=== PATIENT | male | born 1970 | race Caucasian/White ===

== ENCOUNTER 2020-01-31 00:18 | Outpatient (CLI) | payer OTHER, SELFPAY ==
[2020-01-31 17:43] LABS: SARS-CoV-2 RNA PCR Negative
== END 2020-01-31 00:19 | disposition home or self-care (01) ==
LOC: ANHCOVIDDT 00:19
PROVIDERS: PCP Family Medicine; Visit Provider Internal Medicine Gastroenterology
DX: Z01.818 Encounter for other preprocedural examination (principal); Z11.59 Encounter for screening for other viral diseases
CPT/HCPCS: 87635; C9803; U0003

== ENCOUNTER 2020-02-02 00:51 | Day surgery (SDC) | payer OTHER, SELFPAY ==
[2019-11-16 14:52] VITALS: BMI 28.3
[2020-01-26 12:36] VITALS: BMI 27.7
--- NOTE | 2020-02-02 07:45 | P.PNAN_ITS ---
Anes - Initial Pre Proc Eval Procedure: Operation Date: 02/02/20 09:30 Proposed Procedures p Colonoscopy - Migel Matos MD Date/Time: 02/02/20 07:45 Surgeon: Migel Matos MD Pre Op Diagnosis: abn CT scan Patient Data Age: 49 Gender: M Height: 1.88 m Weight: 98 kg Allergies Allergy/AdvReac Type Severity Reaction Status Date / Time No Known Allergies Allergy Verified 02/02/20 09:13 Home Medications Medication Instructions Recorded Confirmed Type aspirin [Aspir-81] 81 mg PO DAILY 07/10/19 11/16/19 History atorvastatin 10 mg PO DAILY 07/10/19 11/16/19 History budesonide-formoterol [Symbicort] 2 puff INHALATION HS 07/10/19 11/16/19 History lisinopril 5 mg PO QAM 07/10/19 11/16/19 History potassium bicarb-citric acid 99 mg PO DAILY 07/10/19 11/16/19 History vitamin B complex [B 1 tablet PO DAILY 07/10/19 11/16/19 History Complex-Vitamin B12] Patient hx anesthesia problems: none Family hx anesthesia problems: none [facility] Past Medical History Medical History (Updated 02/02/20 @ 09:12 by Ty Alvarez MD) Arthritis Asthma Bronchitis CAD (coronary artery disease) Closed left ankle fracture COPD (chronic obstructive pulmonary disease) Hyperlipidemia Hypertension Myocardial infarction 03/2018 Tobacco abuse Urinary tract infection Surgical History Surgical History Hx of tonsillectomy Social History Social History Smoking packs per day: 0.75 Smoking cigarettes per day: 15.0 Years smoked: 33 Smoking pack-years: 24.75 Smoking status: Current every day smoker Tobacco type: cigarettes Gender identity (if verbalized by the patient): Male Anes - Eval Final PreProcedure Day of Procedure 02/02/20 07:45 Patient weight: overweight Heart: regular rate and rhythm Lungs: clear to auscultation and normal air movement Airway: Mallampati scale class II Neurological: alert and oriented Last oral intake: >/= 8 hours ASA classification: III Emergent: no Anesthetic plan: proceed Anesthesia type and monitoring: general GIVS Informed Consent: The patient's anesthetic plan and its attendant risks and benefits were discussed with the patient/family/POA. Questions were solicited and answers provided to the satisfaction of the patient/family/POA.
[2020-02-02 09:15] VITALS: BP 133/56; PULSE 64; RESP 18; TEMP 37.1; O2SAT 99
[2020-02-02 09:16] VITALS: BMI 26.1
[2020-02-02] MEDS: LACTATED RINGERS 1,000 ML 150 ML IV CONT (09:30)
[2020-02-02 10:49] VITALS: BP 122/65; PULSE 62; RESP 22; O2SAT 96
--- NOTE | 2020-02-02 10:49 | WPDGICN ---
Assessment and Plan Assessment and plan (1) Special screening for malignant neoplasm of intestine: Code(s): Z12.10 - Encounter for screening for malignant neoplasm of intestinal tract, unspecified Status: Acute Assessment and Plan: thickening of colon suggested on CT scan. Plans for colonoscopy evaluate more thoroughly. It this could resume present infection now cleared or be spurious. Further recommendations will be given after endoscopy. Patient has never had a screening colonoscopy and for this reason colonoscopy is recommended now and at intervals in the future. Specific follow-up will be given after endoscopy. (2) Abnormal CT scan: Code(s): R93.89 - Abnormal findings on diagnostic imaging of other specified body structures Status: Acute GI Consult Note Consult date/time: 02/02/20 10:49 HPI: Claude Briceno is a 49 year old male Seen in evaluation at the request of Dr. Sushil Horta. Patient complains of burning urination period was found to have prostatic hypertrophy with elevated PSA. Currently anticipated see in Urology. A CT scan was performed in August suggesting inflammation and thickening of the right colon. Patient denies any abdominal pain is current weight appetite bowel movements are normal. He has never had a colonoscopy in therefore presents for colonoscopy today both for screening and to evaluate abnormality seen on CT scan. Patient reports no weight loss no bleeding. No abdominal pain is bowel habits are normal. Family history noncontributory. Review of Systems Review of Systems: All systems reviewed & are unremarkable except as noted in HPI and below PMFSH Past Medical History Medical History Arthritis Asthma Bronchitis CAD (coronary artery disease) Closed left ankle fracture COPD (chronic obstructive pulmonary disease) Hyperlipidemia Hypertension Myocardial infarction 03/2018 Tobacco abuse Urinary tract infection Surgical History Surgical History Hx of tonsillectomy Social History Social History Smoking packs per day: 0.75 Smoking cigarettes per day: 15.0 Years smoked: 33 Smoking pack-years: 24.75 Smoking status: Current every day smoker Tobacco type: cigarettes Gender identity (if verbalized by the patient): Male Meds Home Medications and Allergies Home Medications Medication Instructions Recorded Confirmed Type aspirin [Aspir-81] 81 mg PO DAILY 07/10/19 02/02/20 History atorvastatin 10 mg PO DAILY 07/10/19 02/02/20 History budesonide-formoterol [Symbicort] 2 puff INHALATION HS 07/10/19 02/02/20 History lisinopril 5 mg PO QAM 07/10/19 02/02/20 History potassium bicarb-citric acid 99 mg PO DAILY 07/10/19 02/02/20 History vitamin B complex [B 1 tablet PO DAILY 07/10/19 02/02/20 History Complex-Vitamin B12] Allergies Allergy/AdvReac Type Severity Reaction Status Date / Time No Known Allergies Allergy Verified 02/02/20 09:13 Vital Signs Vital Signs - 24 hr 02/02/20 09:15 Temperature 37.1 C Pulse Rate 64 Respiratory Rate 18 Blood Pressure 133/56 L Pulse Oximetry 99 Exam Narrative: Exam Narrative: Physical exam reveals patient to be alert. Vital signs stable. HEENT exam unremarkable. Lungs are clear to auscultation and percussion. Heart is without murmur or extra sounds. Abdominal exam bowel sounds are present soft nontender with no organomegaly. Digital external rectal exam normal
[2020-02-02 10:59] VITALS: BP 112/65; PULSE 57; RESP 22; O2SAT 96
[2020-02-02 11:09] VITALS: BP 142/89; PULSE 57; RESP 18; O2SAT 96
== END 2020-02-02 11:43 | disposition home or self-care (01) ==
PROVIDERS: PCP Family Medicine; Visit Provider Internal Medicine Gastroenterology
PROC: 0DJD8ZZ Inspection of Lower Intestinal Tract, Via Natural or Artificial Opening Endoscopic (ICD-10-PCS; CPT 45378; principal; 2020-02-02 09:30)
DX: Z12.11 Encounter for screening for malignant neoplasm of colon (principal); D12.5 Benign neoplasm of sigmoid colon; K64.8 Other hemorrhoids; I25.10 Atherosclerotic heart disease of native coronary artery without angina pectoris; I10 Essential (primary) hypertension; E78.5 Hyperlipidemia, unspecified; I25.2 Old myocardial infarction; J44.9 Chronic obstructive pulmonary disease, unspecified; F17.210 Nicotine dependence, cigarettes, uncomplicated; Z79.82 Long term (current) use of aspirin
CPT/HCPCS: 45385; 88305; J2704; J7120

== ENCOUNTER 2020-02-05 10:15 | Emergency (ER) | payer OTHER, SELFPAY ==
[2020-02-05 10:25] VITALS: BP 138/64; PULSE 68; RESP 18; TEMP 37.2; O2SAT 98
--- NOTE | 2020-02-05 10:33 | ED.GENADULT ---
HPI - General Adult General Chief complaint: Ear Stated complaint: Dizzy and ear pain Time Seen by Provider: 02/05/20 10:35 Source: patient and RN notes reviewed Mode of arrival: ambulatory Limitations: no limitations History of Present Illness HPI narrative: This is a 49 years old male presented office for evaluation of left ear pressure for two days. Today, he develops a little dizziness describes as disequalibrium and room spinning. Denies associated symptoms such as chest pain, indigestion, sweating, or shortness of breath. Denies any new medication or food. He admits to recent swimming. No treatment prior to arrival. He is a catering truck driver. Related Data Home Medications Medication Instructions Recorded Confirmed aspirin [Aspir-81] 81 mg PO DAILY 07/10/19 02/05/20 atorvastatin 10 mg PO DAILY 07/10/19 02/05/20 budesonide-formoterol [Symbicort] 2 puff INHALATION HS 07/10/19 02/05/20 lisinopril 5 mg PO QAM 07/10/19 02/05/20 potassium bicarb-citric acid 99 mg PO DAILY 07/10/19 02/05/20 vitamin B complex [B 1 tablet PO DAILY 07/10/19 02/05/20 Complex-Vitamin B12] Allergies Allergy/AdvReac Type Severity Reaction Status Date / Time No Known Allergies Allergy Verified 02/02/20 09:13 Review of Systems Review of Systems: Narrative: CONSTITUTIONAL: Denies fever or feeling ill ENT: Denies congestion/drainage. He kept saying if i can pops my ear; it will go a way . CARDIOVASCULAR: Denies chest pain, palpitation, edema. RESPIRATORY: Denies dyspnea, cough GASTROINTESTINAL: Denies abdominal pain, nausea, vomiting, diarrhea. GENITOURINARY: Denies urinary symptoms SKIN: Denies rash MUSCULOSKELETAL: Denies joints pain NEUROLOGIC: Denies head injury, passing out or focal weakness [facility] Past Medical History Medical History Arthritis Asthma Bronchitis CAD (coronary artery disease) Closed left ankle fracture COPD (chronic obstructive pulmonary disease) Hyperlipidemia Hypertension Myocardial infarction 03/2018 Tobacco abuse Urinary tract infection Surgical History Surgical History Hx of tonsillectomy Social History Social History Smoking packs per day: 0.75 Smoking cigarettes per day: 15.0 Years smoked: 33 Smoking pack-years: 24.75 Smoking status: Current every day smoker Tobacco type: cigarettes Gender identity (if verbalized by the patient): Male Comments At time of signature, I agree with nursing past medical, surgical, social and family history. There is no relevant family history pertinent to the presenting complaint. Exam Narrative: Exam Narrative: GENERAL: This is a well-nourished, well-developed patient, in no apparent distress. HEAD: normocephalic, atraumatic. EYES: PERRL. EMOI. Sclera clear/white. Vision is grossly intact. EARS: External ears normal, auditory canals clear and without drainage, bilateral TMs noted fluid level; without perforation. Hearing grossly intact. NOSE: External nose normal with no obvious nasal discharge, nares without redness, no rhinorrhea. THROAT: Mucous membranes moist, posterior pharynx clear. NECK: Neck supple, non-tender without lymphadenopathy, masses or thyromegaly. CARDIOVASCULAR: Regular rate and rhythm without murmurs, gallops, or rubs. RESPIRATORY: Clear to auscultation. Breath sounds equal bilaterally. No wheezes, rales, or rhonchi. GASTROINTESTINAL: Abdomen soft, non-tender, nondistended. Bowel sounds are active. No hepato-splenomegaly, or palpable masses. No guarding. SKIN: warm, intact with no suspicious lesions or rash, good texture and turgor. NEURO: awake, alert, and oriented to person, place and time. There were no obvious focal neurologic abnormalities. Steady gait EXTREMITIES: Normal range of motion. No edema. Marly Coma Scale Eye Opening: Spontaneous 4 Marly Coma Sca
== END 2020-02-05 10:50 | disposition home or self-care (01) ==
PROVIDERS: Emergency Provider Nurse Practitioner; PCP Nurse Practitioner Adult Health
DX: R42 Dizziness and giddiness (principal); I25.10 Atherosclerotic heart disease of native coronary artery without angina pectoris; J44.9 Chronic obstructive pulmonary disease, unspecified; E78.5 Hyperlipidemia, unspecified; I10 Essential (primary) hypertension; I25.2 Old myocardial infarction; F17.210 Nicotine dependence, cigarettes, uncomplicated
CPT/HCPCS: 99213; G0463

== ENCOUNTER 2020-04-06 21:45 | Emergency (ER) | payer OTHER, SELFPAY ==
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
[2020-04-06 22:17] VITALS: BP 162/87; PULSE 66; RESP 16; TEMP 36.6; O2SAT 97
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
[2020-04-06] MEDS: LIDO 1%/EPINEPHRINE 1:100,000 20 ML VIAL 3 ML INFILTRATE (22:33)
[2020-04-06] MEDS: ACETAMINOPHEN 500 MG TABLET 1000 MG PO (22:33)
[2020-04-06] MEDS: TETANUS,DIPHTHERIA,AC PERTUSSIS ADULT 0.5 ML (ADACEL) IM (22:34)
[2020-04-06 22:39] VITALS: BP 152/78; PULSE 68; RESP 16; O2SAT 100
[2020-04-06 23:09] VITALS: BP 162/83; PULSE 83; RESP 20; TEMP 37.1; O2SAT 97
--- NOTE | 2020-04-06 23:11 | PC.NURSE ---
sutures per dr white. pt tolerated well.
== END 2020-04-06 23:57 | disposition home or self-care (01) ==
PROVIDERS: Emergency Provider Family Medicine; PCP Nurse Practitioner Adult Health
DX: S06.0X9A Concussion with loss of consciousness of unspecified duration, initial encounter (principal); S00.03XA Contusion of scalp, initial encounter; Y04.0XXA Assault by unarmed brawl or fight, initial encounter
CPT/HCPCS: 12011; 70450; 72125; 90471; 90715; 99282; 99284

== ENCOUNTER 2020-08-01 23:25 | Emergency (ER) | payer OTHER, SELFPAY ==
--- NOTE | ~2020-08-01 | CT_ITS ---
EXAMINATION: CT brain wo con DATE: 08/01/2020 23:46 INDICATION: Syncope. Altered mental status. TECHNIQUE: Computed tomography (CT) of the head was performed without intravenous contrast. Sagittal and coronal reconstructions were performed. The mA was adjusted according to patient size. Iterative reconstruction technique was employed. The dose-length product was 605.33 mGy-cm. COMPARISON: head CT dated 04/06/2020 FINDINGS: No acute intracranial hemorrhage, acute infarction or abnormal extra axial fluid collection. Ventricl es are normal and symmetric. No mass/mass effect. Moderate mucosal thickening throughout the paranasa l sinuses with small amount of bubbly mucus in the dependent left maxillary sinus. The orbits and mas toid air cells are normal. IMPRESSION: 1. No acute intracranial process. Reviewed, dictated and finalized at location A. Y MANAGER
--- NOTE | ~2020-08-01 | XR_ITS ---
EXAMINATION: XR chest 1V portable DATE: 08/01/2020 23:47 INDICATION: Altered mental status. Syncope. TECHNIQUE: frontal view of the chest was obtained. COMPARISON: Chest radiograph dated 07/14/2018 FINDINGS: The lungs remain clear with no focal airspace opacities, pulmonary edema, pleural effusion or pneumot horax. The cardiomediastinal silhouette is normal. Old healed right eighth rib fracture. IMPRESSION: 1. No acute cardiopulmonary disease. Reviewed, dictated and finalized at location A. ICE SECRETARY
[2020-08-01 23:25] VITALS: BP 157/84; PULSE 108; PULSE 97; RESP 16; TEMP 37.1; O2SAT 97; O2SAT 98
--- NOTE | 2020-08-01 23:33 | ECG_ITS ---
Measurements Intervals [place] Rate: 76 P: 74 NV: 147 QRS: 42 QRSD: 102 T: 64 QT: 369 QTc: 417 Interpretive Statements SINUS RHYTHM INCOMPLETE RIGHT BUNDLE BRANCH BLOCK BASELINE ARTIFACT- I, II, III, AVR, AVL, AVF, V1-V2 BORDERLINE ECG Electronically Signed On 08-02-2020 7:10:25 [employer]ARM [employer] by Thanh Lockhart D.O.
[2020-08-01 23:38] LABS: Base Excess ABG -3.8 mmol/L (0-2); Carboxyhemoglobin 5.2 % (0-1.5); HCO3 ABG 22.5 mmol/L (23-29); Methemoglobin ABG 0.1 % (0-1.5); Oxygen Saturation ABG 95.5 % (95-97); Oxyhemoglobin 90.4 % (94-100); PCO2 ABG 45.5 mmHg (35-45); PO2 ABG 88.5 mmHg (80-90); Reduced Hemoglobin 4.3 % (0-1.5); Total Hemoglobin 14.9 g/dL; pH ABG 7.31 (7.35-7.45)
[2020-08-01 23:39] LABS: Basophils Absolute Auto 0.06 K/mm3 (0.00-0.10); Basophils Percent Auto 0.6 % (0.0-1.0); Device NASAL CANNULA; Eosinophils Absolute Auto 0.32 K/mm3 (0.02-0.50); Eosinophils Percent Auto 3.4 % (1.0-6.0); Hematocrit 44.3 % (40.0-54.0); Hemoglobin 14.2 g/dL (14.0-18.0); Immature Granulocyte Absolute 0.03 K/mm3 (0.00-0.00); Immature Granulocyte Percent A 0.3 % (0.0-0.0); Lymphocytes Absolute Auto 4.42 K/mm3 (1.10-4.50); Lymphocytes Percent Auto 47.2 % (18.0-42.0); Mean Corpuscular HGB Conc 32.1 g/dL (32.0-36.0); Mean Corpuscular Hemoglobin 31.9 pg (27.0-31.0); Mean Corpuscular Volume 99.6 fL (78.0-102.0); Mean Platelet Volume 9.2 fl (8.7-11.0); Modified Allen's Test Pass; Monocytes Absolute Auto 0.65 K/mm3 (0.10-0.90); Monocytes Percent Auto 6.9 % (2.0-11.0); Neutrophils Absolute Auto 3.9 K/mm3 (1.7-7.2); Neutrophils Percent Auto 41.6 % (50.0-70.0); Platelet Count Result 313 K/mm3 (150-420); Red Blood Count 4.45 M/mm3 (4.70-6.10); Red Cell Distribution Width 12.3 % (11.6-14.4); Site Drawn RIGHT RADIAL; White Blood Count 9.4 K/mm3 (4.8-10.8)
[2020-08-01 23:51] LABS: INR 0.9; Prothrombin Time 10.3 Seconds (9.50-12.10)
[2020-08-01 23:56] LABS: Alanine Aminotransferase 35 U/L (16-63); Albumin Level 4.3 g/dL (3.4-5.0); Alkaline Phosphatase 69 U/L (46-116); Anion Gap 14 mmol/L (8-16); Aspartate Amino Transferase 17 U/L (15-37); Bilirubin,Total 0.2 mg/dL (0.00-1.00); Blood Urea Nitrogen 9 mg/dL (7-18); Calcium 8.4 mg/dL (8.5-10.1); Carbon Dioxide 25 mmol/L (21-32); Chloride 104 mmol/L (98-108); Estimated Glomerular Filt Rate > 60; Glucose 75 mg/dL (70-99); Osmolality Calculated 293 mOsm/kg (285-295); Potassium 3.6 mmol/L (3.5-5.1); Sodium 143 mmol/L (136-145); Total Protein 7.9 g/dL (6.4-8.2); Troponin I 7.7 ng/L (0.00-60.4)
[2020-08-01 23:59] LABS: Ethanol 232 mg/dL (0-6)
[2020-08-02] MEDS: SODIUM CHLORIDE 0.9% IV 1,000 ML 999 ML IV CONT (00:05)
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
[2020-08-02 01:20] VITALS: BP 138/79; PULSE 87; RESP 20; TEMP 37.1; O2SAT 98
--- NOTE | 2020-08-02 05:47 | PC.NURSE ---
0013 CALL PLACED TO [facility] PER REQUEST OF PT FOR TRANSFER FOR STAT STROKE. [facility] CALLED FOR TRANSPORT. 0030 NO CALL BACK FROM [facility], CALL PLACED TO TRANSFER CENTER . PER TARISSA, [facility] IS AT FULL CAPACITY. DECLINED STAT STROKE PT AT THIS TIME. 0035 CALL PLACED TO [facility], SPOKE WITH ALKA. DR CHEN SPEAKING WITH ALKA. AWAITING CALL BACK FROM DR MUHAMMAD. 0040 [facility] HERE , UPDATE TO [facility] REGARDING BED PLACEMENT. [address] CHEN SPEAKING WITH DR MUHAMMAD, PT TO TRANSFER TO [facility]. 0100 PT BEING PREPPED FOR [facility] TRANSPORT PER [facility] STAFF. 0107 REPORT TO VALERIA YOO AT [facility], PT TO GO TO CRU#4. INFORMATION OBTAINED REGARDING VISITOR STATUS. INFORMATION GIVEN TO PT AND . VOICED UNDERSTANDING. 0132 PT LOADED AND DEPARTED FACILITY WITH [facility] STAFF. ALERT AND ORIENTED, SPEECH CLEAR. 0141 [facility]TOFF OCCURRED, [facility] NOTIFIED OF DEPARTURE TIME.
== END 2020-08-02 01:32 | disposition short-term general hospital (02) ==
PROVIDERS: Emergency Provider Emergency Medicine
DX: I63.9 Cerebral infarction, unspecified (principal); Z79.899 Other long term (current) drug therapy; F17.200 Nicotine dependence, unspecified, uncomplicated
CPT/HCPCS: 36415; 36600; 70450; 71045; 80053; 80307; 82375; 82805; 83050; 84484; 85025; 85610; 85730; 93005; 96361; 96374; 99285; J2997; J7030; J7050

== ENCOUNTER 2020-09-02 00:32 | Outpatient (CLI) | payer OTHER, SELFPAY ==
[2020-09-02 18:50] LABS: SARS-CoV-2 RNA PCR Negative
== END 2020-09-02 00:33 | disposition home or self-care (01) ==
LOC: ANHCOVIDDT 00:32
PROVIDERS: Visit Provider Internal Medicine Cardiovascular Disease
DX: Z01.812 Encounter for preprocedural laboratory examination (principal); Z20.822 Contact with and (suspected) exposure to COVID-19
CPT/HCPCS: C9803; U0003

== ENCOUNTER 2020-09-05 00:18 | Day surgery (SDC) | payer OTHER, SELFPAY ==
[2020-09-04 10:00] VITALS: BP 133/66; PULSE 58; RESP 12; O2SAT 97
[2020-09-04 15:57] VITALS: BMI 27.2
[2020-09-05] VITALS (10 sets, daily range): BP systolic 112–140; BP diastolic 58–79; PULSE 52–81; RESP 12–16; TEMP 35.7–37; O2SAT 97–99; BMI 27.4
[2020-09-05 07:53] LABS: Basophils Absolute Auto 0.1 K/mm3 (0.0-0.1); Basophils Percent Auto 0.7 % (0.2-1.2); Eosinophils Absolute Auto 0.3 K/mm3 (0-0.3); Eosinophils Percent Auto 4.2 % (0-4.4); Hematocrit 47.4 % (42.0-52.0); Hemoglobin 15.6 g/dL (14.0-18.0); Immature Granulocyte Absolute 0.04 K/mm3 (0.00-0.031); Immature Granulocyte Percent A 0.5 % (0-0.5); Lymphocytes Absolute Auto 2.59 K/mm3 (0.9-3.2); Lymphocytes Percent Auto 33.7 % (18.3-44.2); Mean Corpuscular HGB Conc 32.9 g/dl (32-36); Mean Corpuscular Hemoglobin 32.4 pg (26-34); Mean Corpuscular Volume 98.3 fl (80-100); Mean Platelet Volume 9.1 fl (7.4-10.4); Monocytes Absolute Auto 0.5 K/mm3 (0.1-0.6); Monocytes Percent Auto 6.5 % (2.6-8.5); Neutrophils Absolute Auto 4.2 K/mm3 (1.3-6.7); Neutrophils Percent Auto 54.4 % (45.5-73.1); Platelet Count Result 302 k/mm3 (150-375); Red Blood Count 4.82 M/mm3 (4.6-6.20); Red Cell Distribution Width 12.7 % (11.5-14.5); White Blood Count 7.7 K/mm3 (4.5-10.0)
[2020-09-05 08:04] LABS: Anion Gap 9 mmol/L (8-16); Blood Urea Nitrogen 16 mg/dL (9-20); Calcium 9.5 mg/dL (8.4-10.2); Carbon Dioxide 28 mmol/L (22-30); Chloride 102 mmol/L (98-107); Estimated CRCL calculation 112 ml/min; Estimated Glomerular Filt Rate > 60; Glucose 119 mg/dL (75-110); INR 0.8; Potassium 4.8 mmol/L (3.4-5.0); Prothrombin Time 11.9 Seconds (11.1-14.7); Sodium 139 mmol/L (137-145)
--- NOTE | 2020-09-05 08:10 | SUR.PREOP ---
Patient arrives ambulatory to [facility] room 5. Patient denies pain upon arrival. VSS. PIV initiated and labs obtained. Consent signed. Patient educated on plan of care and verbalizes understanding. Will continue to closely monitor.
--- NOTE | 2020-09-05 08:25 | WPDMODSED ---
Moderate Sedation Note-Pt Data Patient Data Allergies Allergy/AdvReac Type Severity Reaction Status Date / Time No Known Allergies Allergy Verified 09/05/20 07:56 Home Medications Medication Instructions Recorded Confirmed Type aspirin [Aspir-81] 81 mg PO DAILY 07/10/19 09/04/20 History atorvastatin 10 mg PO DAILY 07/10/19 09/04/20 History budesonide-formoterol [Symbicort] 2 puff INHALATION HS 07/10/19 09/04/20 History lisinopril 10 mg PO QAM 07/10/19 09/04/20 History potassium bicarb-citric acid 99 mg PO DAILY 07/10/19 09/04/20 History vitamin B complex [B 1 tablet PO DAILY 07/10/19 09/04/20 History Complex-Vitamin B12] Current Medications: Active Medications Sodium Chloride (Normal Saline Iv) 500 mls @ 30 mls/hr IV CONT .[id number] ONE Stop: 09/06/20 00:14 Sedation/Anesthesia: No previous sedation/anesthesia problems (including family history). [facility], LAT[facility] Past Medical History Medical History Arthritis Asthma Bronchitis CAD (coronary artery disease) Closed left ankle fracture COPD (chronic obstructive pulmonary disease) Hyperlipidemia Hypertension Myocardial infarction 03/2018 Tobacco abuse Urinary tract infection Surgical History Surgical History Hx of tonsillectomy Social History Social History Smoking packs per day: 0.75 Smoking cigarettes per day: 15.0 Years smoked: 33 Smoking pack-years: 24.75 Smoking status: Current every day smoker Tobacco type: cigarettes Drinks per week: 10 Substance use type: does not use 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 Gender identity (if verbalized by the patient): Male Mod Sed Physical Exam Physical Exam Pre Procedural Exam: Normal: Appearance, Eyes, Ears, Nose, Neck, Throat, Airway, Lungs, Heart Size, Heart Rate, Heart Rhythm, Neuro Exam, Abdomen, Liver, Kidneys, Spleen, Breasts, Genitalia, Extremities and Skin Hours since solid foods: 8 Hours since liquid intake: 8 Internal Medicine - PN: Obj Da Vital Signs Vital Signs: Vital Signs - 24 hr 09/05/20 07:45 Temperature 37.0 C Pulse Rate 81 Respiratory Rate 12 Blood Pressure 112/79 Pulse Oximetry 98 Meds/Results Medications: Active Medications Generic Name Dose Route Start Last Admin Trade Name Melissa PRN Reason Stop Dose Admin Sodium Chloride 500 mls @ 30 mls/hr 09/05/20 07:35 Normal Saline Iv IV CONT 09/06/20 00:14 .[id number] ONE Labs CBC & Chem 7: 09/05/20 07:39 09/05/20 07:39 Labs: Laboratory Results - last 24 hr 09/05/20 09/05/20 09/05/20 07:39 07:39 07:39 WBC 7.7 RBC 4.82 Hgb 15.6 Hct 47.4 MCV 98.3 MCH 32.4 MCHC 32.9 RDW 12.7 Plt Count 302 MPV 9.1 Immature Gran % (Auto) 0.5 Neut % (Auto) 54.4 Lymph % (Auto) 33.7 Clay % (Auto) 6.5 Eos % (Auto) 4.2 Baso % (Auto) 0.7 Lymph # (Auto) 2.59 Clay # (Auto) 0.5 Eos # (Auto) 0.3 Baso # (Auto) 0.1 Abs Immat Gran (auto) 0.04 H Absolute Neuts (auto) 4.2 Absolute Nucleated RBC 0.0 Nucleated RBC % 0.0 PT 11.9 INR 0.8 Sodium 139 Potassium 4.8 Chloride 102 Carbon Dioxide 28 Anion Gap 9 BUN 16 Creatinine 0.80 Estim Creat Clear Calc 112 Estimated GFR > 60 Glucose 119 H Calcium 9.5 ASA Classification/Sedation ASA Classification/Sedation ASA Class: I Emergent: No Risks: Risks, benefits and alternatives explained and patient/family accepted plan for sedation. Patient re-evaluated immediately prior to sedation.
--- NOTE | 2020-09-05 09:21 | WPDHPUPDATE1 ---
History and Physical Update Update Date/Time: 09/05/20 0800 History and Physical has been reviewed, including an updated exam of the patient. There are NO changes in the patient's condition. Risks, benefits, and alternatives have been discussed and questions answered. Patient agrees to proceed with procedure.
--- NOTE | 2020-09-05 09:22 | P.PCNCC_ITS ---
Cardiac Cath Procedure Note Date of procedure:: 09/05/20 Performing physician:: Heaven Rendon MD date of service September 05, 2020 Indication:: abnormal stress test and strong family history for CAD Brief clinical history:: this is 50-year-old patient with past history of chronic tobacco use, COPD who had his younger brother had coronary artery bypass grafting. Patient was very concerned about having CAD. Underwent stress testing that shows an area of ischemia in the inferior wall. Risks and benefits of cardiac catheterization was discussed with the patient he agreed to proceed. Procedure Procedure performed:: 1-Moderate sedation that started at 8:50 a.m.and ended at 9:17 a.m.using 6mg of Versed and 150mcg fentanyl. The registered nurse was wily rivera 2-Selective left and right coronary angiogram. 3-Left heart catheterization with measurement of LVEDP and measurement of gradient across aortic valve. 3- LV angiogram. 4-Right common femoral arterial angiogram. 5-Deployment of 6 Beninese Angio-Seal. Sedation/Medication given:: Moderate sedation. Access site:: Right common femoral artery. Estimated blood loss:: 10cc Procedure note:: After informed consent patient was brought in to director of labor and delivery with the was draped and prepped in usual manner. Moderate sedation was given and the right groin was infiltrated using 1% lidocaine. Five Beninese sheath was obtained using micropuncture needle and the modified Seldinger technique. Selective left coronary angiogram was done using JL4 catheter with the tip of the catheter placed in the left main coronary artery. Selective right coronary angiogram was done using JR4 catheter with the tip of the catheter placed to the right coronary artery. After that 5 Beninese pigtail catheter was advanced across the aortic valve into the left ventricle with measurement of LVEDP and measurement of gradient across aortic valve. LV angiogram was done as well .Right common femoral arterial angiogram was done. deployment 6 Beninese Angio-Seal Findings:: 1- left coronary artery is a large artery that divides into large LAD, LARGE RAMUS INTERMEDIUS AND large circumflex artery. Left main is Free of disease. 2- left anterior descending artery is a large artery that runs and wraps around the apex. Has minimal irregularities proximally otherwise free of disease. medium-sized diagonal branch that looks unremarkable. 3- leftcircumflex artery is a large artery And free of disease. Distally small OM branches that are free of disease. 3- Ramus intermedius is a large artery and free of disease. 4- right coronary artery is A large artery and dominant and free of disease. 5- LVEDP was 15 mm Hg and no gradient across aortic valve. 5- LV angiogram shows normal LV systolic function with no wall motion abnormalities with estimated ejection fraction 65%. Normal ascending aorta. 6- opening arterial pressure was 130/80and closing pressure was 120/80 7- right femoral artery angiogram shows no significant disease in the right common femoral artery. Conclusion:: 1- minimal irregularities of the LAD otherwise no CAD. Assessment and Plan Additional Plan Continue aggressive risk factor modification for CAD
--- NOTE | 2020-09-05 14:04 | SUR.PHASEII ---
VS marked as taken on 09/04/20 by this RN should be noted to have been taken on 09/05/20 following patient's LHC procedure.
== END 2020-09-05 13:30 | disposition home or self-care (01) ==
PROVIDERS: PCP Nurse Practitioner Adult Health; Visit Provider Internal Medicine Cardiovascular Disease
PROC: 4A023N7 Measurement of Cardiac Sampling and Pressure, Left Heart, Percutaneous Approach (ICD-10-PCS; CPT 93452; principal; 2020-09-05 08:30)
DX: R94.39 Abnormal result of other cardiovascular function study (principal); Z82.49 Family history of ischemic heart disease and other diseases of the circulatory system; J44.9 Chronic obstructive pulmonary disease, unspecified; F41.9 Anxiety disorder, unspecified; I10 Essential (primary) hypertension; E78.5 Hyperlipidemia, unspecified; I25.2 Old myocardial infarction; Z79.82 Long term (current) use of aspirin; F17.210 Nicotine dependence, cigarettes, uncomplicated
CPT/HCPCS: 36415; 80048; 85025; 85610; 93458; C1760; C1887; C1894; C9803; G0269; J1644; J2250; J3010; J7040; U0003

== ENCOUNTER → 2021-02-08 00:18 | Outpatient (CLI) | payer OTHER, SELFPAY ==
[2021-02-08 17:56] LABS: SARS-CoV-2 RNA PCR Negative
== END ==
PROVIDERS: PCP Nurse Practitioner Adult Health; Visit Provider Internal Medicine Gastroenterology
DX: Z01.812 Encounter for preprocedural laboratory examination (principal); Z20.822 Contact with and (suspected) exposure to COVID-19
CPT/HCPCS: C9803; U0003; U0005

== ENCOUNTER 2021-02-11 02:08 | Day surgery (SDC) | payer OTHER, SELFPAY ==
[2021-02-06 12:58] VITALS: BMI 31.6
--- NOTE | 2021-02-11 08:00 | WPDANESEPPF ---
Anes - Initial Pre Proc Eval Procedure: Operation Date: 02/11/21 11:45 Proposed Procedures p Esophagogastroduodenoscopy & Colonoscopy - Migel Matos MD Date/Time: 02/11/21 08:00 Surgeon: Migel Matos MD Pre Op Diagnosis: abnormal CAT scan Patient Data Age: 50 Gender: M Height: 1.85 m Weight: 109 kg Allergies Allergy/AdvReac Type Severity Reaction Status Date / Time No Known Allergies Allergy Verified 02/11/21 10:32 Home Medications Medication Instructions Recorded Confirmed Type aspirin [Aspir-81] 81 mg PO DAILY 07/10/19 02/11/21 History atorvastatin 10 mg PO DAILY 07/10/19 02/11/21 History budesonide-formoterol [Symbicort] 2 puff INHALATION HS 07/10/19 02/11/21 History lisinopril 10 mg PO QAM 07/10/19 02/11/21 History potassium bicarb-citric acid 99 mg PO DAILY 07/10/19 02/11/21 History vitamin B complex [B 1 tablet PO DAILY 07/10/19 02/11/21 History Complex-Vitamin B12] Patient hx anesthesia problems: none Family hx anesthesia problems: none PMFSH Past Medical History Medical History Arthritis Asthma Bronchitis CAD (coronary artery disease) Closed left ankle fracture COPD (chronic obstructive pulmonary disease) Hyperlipidemia Hypertension Myocardial infarction 03/2018 Tobacco abuse Urinary tract infection Surgical History Surgical History Hx of tonsillectomy Social History Social History Smoking packs per day: 0.75 Smoking cigarettes per day: 15.0 Years smoked: 33 Smoking pack-years: 24.75 Smoking status: Current every day smoker Tobacco type: cigarettes Alcohol intake: current Drinks per week: 10 Substance use: never Substance use type: does not use Living arrangements: with family 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 Questions were solicited and answers provided to the satisfaction of the patient/family/POA.
[2021-02-11 10:36] VITALS: BP 142/71; PULSE 66; RESP 18; TEMP 36.3; O2SAT 100; BMI 27.2
[2021-02-11] MEDS: LACTATED RINGERS 1,000 ML 150 ML IV CONT (10:49)
--- NOTE | 2021-02-11 11:10 | WPDGICN ---
Assessment and Plan Assessment and plan (1) Abnormal CT scan: Code(s): R93.89 - Abnormal findings on diagnostic imaging of other specified body structures Status: Acute Assessment and Plan: Abnormal CT scan suggesting thickening of the colon. For this reason colonoscopy will be performed. As well as EGD. (2) Special screening for malignant neoplasm of intestine: Code(s): Z12.10 - Encounter for screening for malignant neoplasm of intestinal tract, unspecified Status: Acute Assessment and Plan: Patient is age 50. Screening colonoscopy is suggested because of age. (3) Umbilical hernia: Code(s): K42.9 - Umbilical hernia without obstruction or gangrene Status: Acute Assessment and Plan: Patient has umbilical hernia that is tender to touch. He states he has had abdominal pain this area off and on. Recommend surgical evaluation for repair of this hernia. GI Consult Note Consult date/time: 02/11/21 11:10 HPI: Claude Briceno is a 50 year old male presents for GI endoscopy. Patient complains of abdominal pain at the area of his umbilicus. Recently found to have umbilical hernia. CT scan was performed which revealed thickening to the ascending colon. This was similar to findings on a previous CT scan 1 year ago. Patient states the abdominal pain that was present 1 year ago has subsequently resolved. His diet has improved. He has at various times though had abdominal pain in various parts of his abdomen. Currently denies any bleeding. He denies any nausea or vomiting. Because he is now age 50 screening colonoscopy is also indicated. Family history is noncontributory. Review of Systems Review of Systems: All systems reviewed & are unremarkable except as noted in HPI and below PMFSH Past Medical History Medical History (Updated 02/11/21 @ 11:13 by Migel Matos MD) Arthritis Asthma Bronchitis CAD (coronary artery disease) Closed left ankle fracture COPD (chronic obstructive pulmonary disease) Hyperlipidemia Hypertension Myocardial infarction 03/2018 Tobacco abuse Urinary tract infection Surgical History Surgical History Hx of tonsillectomy Social History Social History Smoking packs per day: 0.75 Smoking cigarettes per day: 15.0 Years smoked: 33 Smoking pack-years: 24.75 Smoking status: Current every day smoker Tobacco type: cigarettes Alcohol intake: current Drinks per week: 10 Substance use: never Substance use type: does not use Living arrangements: with family Additional occupation/education comments: dairy truck driver Gender identity (if verbalized by the patient): Male Spiritual care concerns: No Meds Home Medications and Allergies Home Medications Medication Instructions Recorded Confirmed Type aspirin [Aspir-81] 81 mg PO DAILY 07/10/19 02/11/21 History atorvastatin 10 mg PO DAILY 07/10/19 02/11/21 History budesonide-formoterol [Symbicort] 2 puff INHALATION HS 07/10/19 02/11/21 History lisinopril 10 mg PO QAM 07/10/19 02/11/21 History potassium bicarb-citric acid 99 mg PO DAILY 07/10/19 02/11/21 History vitamin B complex [B 1 tablet PO DAILY 07/10/19 02/11/21 History Complex-Vitamin B12] Allergies Allergy/AdvReac Type Severity Reaction Status Date / Time No Known Allergies Allergy Verified 02/11/21 10:32 Vital Signs Vital Signs - 24 hr 02/11/21 10:36 Temperature 97.3 F L Pulse Rate 66 Respiratory Rate 18 Blood Pressure 142/71 H Pulse Oximetry 100 Exam Narrative: Exam Narrative: Physical exam reveals patient be alert. Vital signs stable. HEENT exam is unremarkable. Patient is anicteric. Lungs are clear to auscultation and percussion. Heart is without murmur or extra sounds. Abdominal exam bowel sounds present soft nontender with no organomegaly as a very small
[2021-02-11 12:17] VITALS: BP 133/108; PULSE 67; RESP 20; O2SAT 99
[2021-02-11 12:31] VITALS: BP 121/52; PULSE 65; RESP 20; O2SAT 99
[2021-02-11 12:39] VITALS: BP 113/56; PULSE 64; RESP 17; O2SAT 99
== END 2021-02-11 12:39 | disposition home or self-care (01) ==
PROVIDERS: PCP Nurse Practitioner Adult Health; Visit Provider Internal Medicine Gastroenterology
PROC: 0DJ08ZZ Inspection of Upper Intestinal Tract, Via Natural or Artificial Opening Endoscopic (ICD-10-PCS; CPT 43235; principal; 2021-02-11 11:45)
DX: Z12.11 Encounter for screening for malignant neoplasm of colon (principal); K64.8 Other hemorrhoids; K57.30 Diverticulosis of large intestine without perforation or abscess without bleeding; K22.10 Ulcer of esophagus without bleeding; K42.9 Umbilical hernia without obstruction or gangrene; I25.10 Atherosclerotic heart disease of native coronary artery without angina pectoris; I10 Essential (primary) hypertension; E78.5 Hyperlipidemia, unspecified; J44.9 Chronic obstructive pulmonary disease, unspecified; I25.2 Old myocardial infarction; F17.210 Nicotine dependence, cigarettes, uncomplicated; Z79.82 Long term (current) use of aspirin
CPT/HCPCS: 45378; 43235; C9803; J2704; J7120; U0003; U0005

== ENCOUNTER 2021-02-20 17:37 | Emergency (ER) | payer OTHER, SELFPAY ==
[2021-02-20 17:52] VITALS: BP 146/72; PULSE 82; RESP 20; TEMP 36.7; O2SAT 96
--- NOTE | 2021-02-20 18:21 | ED.WOUNDLAC ---
HPI - Wound/Laceration General Chief Complaint: Wound/Laceration Stated Complaint: cut on arm Source: patient Mode of arrival: ambulatory Limitations: no limitations History of Present Illness HPI narrative: this is a did 50-year-old male that presents with a laceration to his left forearm that occurred earlier this afternoon gaping about 4cm in length gaping with some old avulsion extending with a laceration patient is up-to-date with his tetanus minimal blood loss no numbness or tingling in his fingers or forearm. Onset (ago): hour(s) Location: other ( left forearm) Extremity Location: Left: forearm ( laceration with avulsion) Related Data Home Medications Medication Instructions Recorded Confirmed atorvastatin 10 mg PO DAILY 07/10/19 02/20/21 lisinopril 10 mg PO DAILY 02/20/21 02/20/21 Allergies Allergy/AdvReac Type Severity Reaction Status Date / Time No Known Allergies Allergy Verified 02/20/21 17:57 Review of Systems Review of Systems: All systems reviewed & are unremarkable except as noted in HPI and below PMFSH Past Medical History Medical History (Updated 02/20/21 @ 18:26 by Claus Powers MD) Arthritis Asthma Bronchitis CAD (coronary artery disease) Closed left ankle fracture COPD (chronic obstructive pulmonary disease) Hyperlipidemia Hypertension Myocardial infarction 03/2018 Tobacco abuse Urinary tract infection Surgical History Surgical History Hx of tonsillectomy Social History Social History Smoking packs per day: 0.75 Smoking cigarettes per day: 15.0 Years smoked: 33 Smoking pack-years: 24.75 Smoking status: Current every day smoker Tobacco type: cigarettes Alcohol intake: current Drinks per week: 10 Substance use: never Substance use type: does not use 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 Gender identity (if verbalized by the patient): Male Spiritual care concerns: No Exam Const: General: no acute distress and alert Orientation/consciousness: patient oriented x3 HENMT: Head: normal to inspection Eyes: Conjunctivae: conjunctivae normal Pupils: Equal, round and reactive pupils present EOM: EOMs intact bilaterally Neck: Neck: normal visual inspection, no lymphadenopathy and no meningeal signs Chest: Chest palpation & inspection: normal inspection of the chest Resp: Effort & Inspection: normal respiratory effort Cardio: Rate: regular rate Rhythm: regular rhythm GI: GI Palp: Yes Soft to palpation Percussion: Yes normal to percussion Urinary Catheter: Urinary Catheter: patent and draining Back/Spine/Pelvis: Back: no CVA tenderness Skin: General skin exam: normal color Rashes: no rashes Other: Laceration to left forearm gaping about 4cm in length with avulsion Neuro: General: patient oriented x3, moves all extremities and no meningeal signs Extrem: General: normal to inspection and no pedal edema Psych: Mental Status: mental status grossly normal Affect: normal affect Course Course Emergency Course: reassessment of patient patient tolerated procedure well had 7 sutures placed in the left forearm and triple antibiotic ointment was placed. Vital Signs Vital signs: Vital Signs Temperature 36.7 C 02/20/21 17:52 Pulse Rate 82 02/20/21 17:52 Respiratory Rate 20 02/20/21 17:52 Blood Pressure 146/72 H 02/20/21 17:52 Pulse Oximetry 96 02/20/21 17:52 Temperature 36.7 C 02/20/21 17:52 Pulse Rate 82 02/20/21 17:52 Respiratory Rate 20 02/20/21 17:52 Blood Pressure 146/72 H 02/20/21 17:52 Pulse Oximetry 96 02/20/21 17:52 Procedures Laceration Laceration 1: Date: 02/20/21 Site: upper extremity Side (If applicable): left Size (cm): 4 Description: stellate and flap Depth: simple, single layer Local Anesthetic: lidoca
[2021-02-20 18:41] VITALS: BP 126/67; PULSE 73; RESP 20; TEMP 36.9; O2SAT 96
== END 2021-02-20 18:42 | disposition home or self-care (01) ==
PROVIDERS: Emergency Provider Emergency Medicine; PCP Nurse Practitioner Adult Health
DX: S51.812A Laceration without foreign body of left forearm, initial encounter (principal); W45.8XXA Other foreign body or object entering through skin, initial encounter
CPT/HCPCS: 12002; 99282

== ENCOUNTER 2022-08-06 10:13 | Outpatient (CLI) | payer OTHER, SELFPAY ==
[2022-08-06 10:36] LABS: Basophils Absolute Auto 0.05 K/mm3 (0.00-0.10); Basophils Percent Auto 0.6 % (0.0-1.0); Eosinophils Absolute Auto 0.19 K/mm3 (0.02-0.50); Eosinophils Percent Auto 2.2 % (1.0-6.0); Hemoglobin 14.3 g/dL (14.0-18.0); Immature Granulocyte Absolute 0.04 K/mm3 (0.00-0.00); Immature Granulocyte Percent A 0.5 % (0.0-0.0); Lymphocytes Absolute Auto 2.91 K/mm3 (1.10-4.50); Lymphocytes Percent Auto 34.4 % (18.0-42.0); Mean Corpuscular HGB Conc 32.5 g/dL (32.0-36.0); Mean Corpuscular Hemoglobin 32.2 pg (27.0-31.0); Mean Corpuscular Volume 99.1 fL (78.0-102.0); Mean Platelet Volume 9.1 fl (8.7-11.0); Monocytes Absolute Auto 0.68 K/mm3 (0.10-0.90); Neutrophils Absolute Auto 4.6 K/mm3 (1.7-7.2); Neutrophils Percent Auto 54.3 % (50.0-70.0); Platelet Count Result 383 K/mm3 (150-420); Red Blood Count 4.44 M/mm3 (4.70-6.10); Red Cell Distribution Width 12.5 % (11.6-14.4); White Blood Count 8.5 K/mm3 (4.8-10.8)
[2022-08-06 10:37] LABS: Appearance Urine Clear (Clear); Bilirubin Urine Negative (Negative); Blood Urine Negative (Negative); Glucose Urine UA Negative (Negative); Ketones Urine Negative (Negative); Leukocyte Esterase Ur Negative LEU/UL (Negative); Nitrate Urine Negative (Negative); Protein Urine Negative (Negative); Urobilinogen Urine 0.2 mg/dL (0.2-1.0)
[2022-08-06 10:41] LABS: Add Urine Microscopic? NO; Color Urine Light Yellow (Yellow)
[2022-08-06 11:39] LABS: Alanine Aminotransferase 26 U/L (16-63); Alkaline Phosphatase 70 U/L (46-116); Anion Gap 5 mmol/L (8-16); Aspartate Amino Transferase 12 U/L (15-37); Bilirubin Direct 0.1 mg/dL (0-0.2); Bilirubin,Total 0.3 mg/dL (0.00-1.00); Blood Urea Nitrogen 9 mg/dL (7-18); Calcium 9.3 mg/dL (8.5-10.1); Carbon Dioxide 33 mmol/L (21-32); Chloride 102 mmol/L (98-108); Cholesterol 131 mg/dL (0-200); Estimated Glomerular Filt Rate > 60; Glucose 102 mg/dL (70-99); HDL Direct 46 mg/dL (40-60); LDL Cholesterol Calculated 68 mg/dL (<130); Osmolality Calculated 288 mOsm/kg (285-295); Potassium 5.6 mmol/L (3.5-5.1); Sodium 140 mmol/L (136-145); Thyroid Stimulating Hormone 0.82 uIU/mL (0.36-3.74); Total Protein 7.3 g/dL (6.4-8.2); Triglycerides 85 mg/dL (0-150)
== END 2022-08-06 10:14 | disposition home or self-care (01) ==
LOC: CHSLAB 10:19
PROVIDERS: PCP Nurse Practitioner Family; Visit Provider Nurse Practitioner Family
DX: Z76.89 Persons encountering health services in other specified circumstances (principal)
CPT/HCPCS: 36415; 80053; 80061; 81003; 82248; 84443; 85025

== ENCOUNTER 2023-03-22 17:50 | Emergency (ER) | payer OTHER, SELFPAY ==
--- NOTE | ~2023-03-22 | CT_ITS ---
CT of the Abdomen and Pelvis: Indication: Abdominal pain Technique: 2.5 mm axial scans were obtained through the abdomen and pelvis following intravenous adm inistration of 100 cc of Omnipaque 350. Dose reduction technique was used on this scan by utilizing a utomated exposure control and iterative reconstruction technique. The dose-length product (DLP) was 7 84.04 mGy-cm. COMPARISON: 09/10/2019 Findings: Scans through the lung bases are unremarkable. The liver, spleen, pancreas, gallbladder, adrenals and kidneys are within normal limits. No evidence of aortic aneurysm. No lymphadenopathy. No bowel obstruction or bowel wall thickening. There is no evidence to suggest acute appendicitis. Sm all fat-containing umbilical hernia present. Images through the pelvis were performed. Urinary bladder unremarkable. Prostate gland and seminal ve sicles are unremarkable. No ascites. Impression: Fat-containing umbilical hernia, otherwise unremarkable exam. Reviewed, dictated and finalized at [facility]. Impression: Fat-containing umbilical hernia, otherwise unremarkable exam.
[2023-03-22 18:04] VITALS: BP 132/73; PULSE 63; RESP 18; TEMP 36.8; O2SAT 98
[2023-03-22 18:23] LABS: Basophils Absolute Auto 0.1 K/mm3 (0.0-0.1); Basophils Percent Auto 0.8 % (0.2-1.2); Eosinophils Absolute Auto 0.3 K/mm3 (0-0.3); Eosinophils Percent Auto 3.5 % (0-4.4); Hematocrit 42.4 % (42.0-52.0); Hemoglobin 13.9 g/dL (14.0-18.0); Immature Granulocyte Absolute 0.02 K/mm3 (0.00-0.031); Immature Granulocyte Percent A 0.3 % (0-0.5); Lymphocytes Absolute Auto 2.72 K/mm3 (0.9-3.2); Lymphocytes Percent Auto 36.2 % (18.3-44.2); Mean Corpuscular HGB Conc 32.8 g/dl (32-36); Mean Corpuscular Volume 97.7 fl (80-100); Monocytes Absolute Auto 0.5 K/mm3 (0.1-0.6); Monocytes Percent Auto 7.1 % (2.6-8.5); Neutrophils Absolute Auto 3.9 K/mm3 (1.3-6.7); Neutrophils Percent Auto 52.1 % (45.5-73.1); Platelet Count Result 283 k/mm3 (150-375); Red Blood Count 4.34 M/mm3 (4.6-6.20); Red Cell Distribution Width 12.7 % (11.5-14.5); White Blood Count 7.5 K/mm3 (4.5-10.0)
[2023-03-22 18:24] LABS: Appearance Urine Clear (Clear); Bilirubin Urine Negative (Negative); Blood Urine Negative (Negative); Color Urine Yellow (Yellow); Glucose Urine UA Negative (Negative); Ketones Urine Negative (Negative); Leukocyte Esterase Ur Negative LEU/UL (Negative); Nitrate Urine Negative (Negative); Protein Urine Negative (Negative); Specific Grav Ur 1.007 (1.001-1.035); Urobilinogen Urine 0.2 mg/dL (<2.0); pH Urine 5.5 (5.0-9.0)
[2023-03-22 18:34] LABS: Alanine Aminotransferase 39 U/L (6-50); Albumin Level 4.4 g/dL (3.5-5.1); Alkaline Phosphatase 53 U/L (38-126); Anion Gap 7 mmol/L (8-16); Aspartate Amino Transferase 32 U/L (17-59); Bilirubin,Total 0.3 mg/dL (0.2-1.3); Blood Urea Nitrogen 12 mg/dL (9-20); Calcium 8.9 mg/dL (8.4-10.2); Carbon Dioxide 27 mmol/L (22-30); Chloride 101 mmol/L (98-107); Estimated CRCL calculation 94 ml/min; Estimated Glomerular Filt Rate > 60; Glucose 146 mg/dL (65-110); Lipase 135 U/L (23-300); Sodium 135 mmol/L (137-145)
[2023-03-22 18:34] LABS: Add Urine Microscopic? NO
[2023-03-22 18:35] LABS: Potassium 3.9 mmol/L (3.4-5.0)
[2023-03-22 18:41] VITALS: BP 135/65; PULSE 59; RESP 19; TEMP 36.9; O2SAT 96
[2023-03-22 19:31] VITALS: PULSE 57; RESP 14; TEMP 37.1; O2SAT 97
[2023-03-22] MEDS: SODIUM CHLORIDE 0.9% IV 1,000 ML 999 ML IV CONT (19:32)
--- NOTE | 2023-03-22 19:32 | ED.ABDPAIN ---
HPI - Abdominal Pain General Chief Complaint: Abdominal Pain Stated Complaint: lower abd pain Time Seen by Provider: 03/22/23 18:32 Source: patient Mode of arrival: ambulatory Limitations: no limitations History of Present Illness HPI narrative: Patient is a 53 y/o male who presents to the ED with c/o R lower abdominal pain. Patient reports he was woken up from his sleep on Wednesday morning with pain in his right lower abdomen. He states pain has been intermittent since then, but progressively worsening. He states pain is worse with straining, walking, using his abdominal muscles. He has not tried anything for the pain. He denies ever having similar pain in the past. Denies nausea, vomiting, diarrhea, constipation, urinary symptoms, fevers. Patient works as a delivery truck driver heavy. Related Data Home Medications Medication Instructions Recorded Confirmed atorvastatin 10 mg tablet 10 mg PO DAILY 07/10/19 11/27/22 lisinopril 10 mg tablet 10 mg PO DAILY 11/27/22 11/27/22 Allergies Allergy/AdvReac Type Severity Reaction Status Date / Time No Known Allergies Allergy Verified 03/22/23 18:53 Review of Systems Review of Systems: CONSTITUTIONAL: Denies fever, chills, or sweats. CARDIOVASCULAR: Denies chest pain. RESPIRATORY: Denies dyspnea. GASTROINTESTINAL: See HPI. GENITOURINARY: Denies dysuria or hematuria. SKIN: Denies rash or itching. MUSCULOSKELETAL: Denies back pain, joint pain, or myalgia. All systems reviewed & are unremarkable except as noted in HPI and below PMFSH Past Medical History Medical History Arthritis Asthma Bronchitis CAD (coronary artery disease) Closed left ankle fracture COPD (chronic obstructive pulmonary disease) Hyperlipidemia Hypertension Myocardial infarction 03/2018 Tobacco abuse Urinary tract infection Surgical History Surgical History Hx of tonsillectomy Family History Family History Father Hypertension Heart disease Sibling Hypertension Heart disease Social History Social History Smoking packs per day: 1 Smoking cigarettes per day: 20.0 Years smoked: 33 Smoking pack-years: 33.00 Smoking status: Current every day smoker Tobacco type: cigarettes Alcohol intake: current Drinks per week: 10 Alcohol use details: 2 -3 beers at night. Denies hx of negative consequences from etoh use, or wanting to cut down or feeling guilty about drinking. 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 HEAD: Normocephalic, atraumatic. NECK: Supple. No adenopathy, no masses. RESPIRATORY: Airway patent, respirations nonlabored. Clear to auscultation bilaterally, no rales, rhonchi, wheezing. CARDIOVASCULAR: Regular rate and rhythm without murmurs, rubs, or gallops. Radial pulses 2+ and equal bilaterally. ABDOMINAL: Soft, focal tenderness in right lower abdomen. No rebound, nondistended, no hepatosplenomegaly. Normoactive BS. MUSCULOSKELETAL: Moves all extremities. Strength/ROM intact without gross deformities. SKIN: Warm, dry, normal color. No rashes. NEURO: A&O X3. Speech clear. Cranial nerves II-XII grossly intact. Steady gait. No ataxic movements. PSYCHI
[2023-03-22] MEDS: ONDANSETRON INJ 4 MG/2 ML VIAL IV PUSH (19:33)
[2023-03-22] MEDS: MORPHINE SULFATE (*CRX) 4 MG/ML INJ IV PUSH (19:34)
[2023-03-22] MEDS: KETOROLAC 30 MG/ML VIAL (*BKC) IV PUSH (20:19)
[2023-03-22 20:50] VITALS: BP 146/66; PULSE 58; RESP 13; TEMP 36.6; O2SAT 97
== END 2023-03-22 20:52 | disposition home or self-care (01) ==
PROVIDERS: Emergency Provider Physician Assistant; PCP Physician Assistant
DX: R10.31 Right lower quadrant pain (principal); I10 Essential (primary) hypertension; I25.10 Atherosclerotic heart disease of native coronary artery without angina pectoris; E78.5 Hyperlipidemia, unspecified; I25.2 Old myocardial infarction; J44.9 Chronic obstructive pulmonary disease, unspecified; M19.90 Unspecified osteoarthritis, unspecified site; F17.210 Nicotine dependence, cigarettes, uncomplicated; Z87.440 Personal history of urinary (tract) infections; K42.9 Umbilical hernia without obstruction or gangrene
CPT/HCPCS: 36415; 74177; 80053; 81003; 83690; 85025; 96361; 96374; 96375; 99284; J1885; J2270; J2405; J7030; Q9967

== ENCOUNTER 2024-05-19 09:32 | Outpatient (CLI) | payer BC, SELFPAY ==
--- NOTE | ~2024-05-19 | CT_ITS ---
CT Scan of the Chest without Contrast: Clinical Indication: Lung cancer screening, nicotine dependence Technique: Contiguous sections were acquired throughout the chest without intravenous contrast. Dose reduction technique was used on this scan by utilizing automated exposure control and iterative recon struction technique. The dose-length product (DLP) was 242.25 mGy-cm. Findings: There is no evidence of any significant mediastinal, hilar or axillary lymphadenopathy. The mediastin al soft tissues appear normal. There is no evidence of pleural or pericardial effusion. The lungs are clear. No pulmonary nodules or infiltrates are noted. Minimal emphysema at the lung api maame noted. Images through the upper abdomen reveal no abnormalities. Impression: Lung RADS 1: Negative. 12 month follow-up screening CT advised. Reviewed, dictated and finalized at location . Impression: Lung RADS 1: Negative. 12 month follow-up screening CT advised.
== END 2024-05-19 09:33 | disposition home or self-care (01) ==
PROVIDERS: PCP Nurse Practitioner; Visit Provider Nurse Practitioner
DX: Z12.2 Encounter for screening for malignant neoplasm of respiratory organs (principal); F17.210 Nicotine dependence, cigarettes, uncomplicated
CPT/HCPCS: 71271

== ENCOUNTER 2024-10-07 09:17 | Emergency (ER) | payer BC, SELFPAY ==
--- OUTSIDE RECORDS SUMMARY | 2024-10-07 09:20 | XMS_ITS | Clinical Summary ---
Author Organization [facility] Address [address] [place] [address] Care Team Providers Care Actuarial Intern Name Role Phone Unavailable Primary Care Provider Unavailabl e Allergies No known active allergies Medications lisinopril 5 MG tablet Take 5 mg by mouth daily. Active vitamin B-12 500 MCG tablet Take 500 mcg by mouth daily. Active aspirin 81 MG chewable tablet Chew 81 mg by mouth daily. Active atorvastatin 10 MG tablet Take 10 mg by mouth nightly at bedtime. Active budesonide 0.25 MG/2ML nebulizer solution Take 0.25 mg by nebulization as needed. Active Active Problems Problem Noted Date Diagnosed Date CVA (cerebral vascular accident) ([facility]/ C) 08/02/2020 Right hemiparesis ([facility]) 08/02/2020 Alcohol abuse 08/02/2020 Tobacco use 08/02/2020 CAD (coronary artery disease) 08/02/2020 HTN (hypertension) 08/02/2020 Hyperlipidemia 08/02/2020 COPD (chronic obstructive pu lmonary disease) ([facility]) 08/02/2020 Ischemic stroke ([facility]) 08/02/2020 Social History Tobacco Use Types Packs/Day Years Used Date Smoking Tobacco: Every Day Cigarettes Alcohol Use Standard Drinks/Week Comments Yes 6 (1 standard drink = 0.6 oz pur e alcohol) Humiliation, Afraid, Rape, and Kick questionnair e Answer Date Recorded Within the last year, have y ou been afraid of your partner or ex-partner? Patient declined 08/02/2020 Within the last year, have y ou been humiliated or emotionally abused in other ways by your partner or ex-partner? Patient declined 08/02/2020 Within the last year, have y ou been kicked, hit, slapped, or otherwise physically hurt by your partner or ex-partner? Patient declined 08/02/2020 Within the last year, have y ou been raped or forced to have any kind of sexual activity by your partner or ex-partner? Patient declined 08/02/2020 Social Connection and Isolation Panel [NHANES] A nswer Date Recorded In a typical week, how many times do you talk on the phone with family, friends, or neighbors? Patient declined 08/02/2020 How often do you get togethe r with friends or relatives? Patient declined 08/02/2020 How often do you attend sabianist or adventist serv ices? Patient declined 08/02/2020 Do you belong to any clubs o r organizations such as sabianist groups, unions, fraternal or athletic groups, or school groups? Patient declined 08/02/2020 How often do you attend meet ings of the clubs or organizations you belong to? Patient declined 08/02/2020 Are you , , di vorced, , never , or living with a partner? Patient declined 08/02/2020 Overall Financial Resource Strain (CARDIA) Answe r Date Recorded How hard is it for you to pa y for the very basics like food, housing, medical care, and heating? Not hard at all 08/02/2020 [facility] [employer] - Occupational Stress Questionnaire Answer Date Recorded Do you feel stress - tense, restless, nervous, or anxious, or unable to sleep at night because your mind is troubled all the time - these days? To some extent 08/02/2020 Hunger Vital Sign Answer Date Recorded Within the past 12 months, y ou worried that your food would run out before you got the money to buy more. Often true 08/02/20 20 Within the past 12 months, t he food you bought just didn't last and you didn't have money to get more. Often true 08/02/2020 PRAPARE - Transportation Answer Date Re corded In the past 12 months, has l ack of transportation kept you from medical appointments or from getting medications? No 11/2019 In the past 12 months, has l ack of transportation kept you from meetings, work, or from getting things needed for daily living? No 08/02/2020 Sex and Gender Information Value Date Recorded Sex Assigned at Not on file Legal Sex Male 1:21 AM IT CONSULTING MANAGER Gender Identity Not on file Sexual Orientation Not on file Last Filed Vital Signs Vital Sign Reading Time Taken Comments Blood Pressure 126/67 08/03/2020 8:00 AM IT CONSULTING MANAGER Pulse 52 08/03/2020 8:00 AM IT CONSULTING MANAGER Temperature 36.4 C (97.5 F) 08/03/2020 4:00 AM IT CONSULTING MANAGER Respiratory Rate 12 08/03/2020 8:00 AM IT CONSULTING MANAGER Oxygen Saturation 97% 08/03/2020 8:00 AM IT CONSULTING MANAGER Inhaled Oxygen Concentration - - Weight 98.6 kg (217 lb 6 oz) 08/02/2020 3:30 AM IT CONSULTING MANAGER Height 188 cm (6' 2 ) 08/02/2020 3:30 AM IT CONSULTING MANAGER Body Mass Index 27.91 08/02/2020 3:30 AM IT CONSULTING MANAGER Plan of Treatment Health Maintenance Due Date Last Done Comments ASCVD Statin 1970 Colorectal Cancer Screening Colonoscopy (10 Years) 1970 Annual Physical 1973 Pneumococcal Vaccine: Pediat rics (0 to 5 Years) and At-Risk Patients (6 to 64 Years) (1 of 2 - PCV) 1976 Hepatitis C 1988 DTaP, Tdap and Td Vaccines ( 1 - Tdap) 1989 Hepatitis B Vaccines (1 of 3 - 19+ 3-dose series) 1989 Zoster Vaccines (1 of 2) 2020 ASCVD LDL 08/02/2021 08/02/2020 COVID-19 Vaccine (1 - 2023-2 5 season) 2024 Influenza Adult (#1) 2024 Meningococcal B Vaccine Aged Out No l onger eligible based on patient's age to complete this topic Meningococcal Vaccine Aged Out No ted stanley eligible based on patient's age to complete this topic RSV Immunizations Under 20 Months Aged Out No longer eligible based on patient's age to complete this topic Procedures Procedure Name Priority Date/Time Associated Diagnosis Comments LIPID PANEL Routine 08/02/2020 3:30 AM IT CONSULTING MANAGER from Last 3 Months or Most Recently Relevant to Health Maintenance Results * LIPID PANEL (08/02/2020 3:30 AM IT CONSULTING MANAGER) CHOLESTEROL 131 MG/DL 08/02/2020 12:22 PM IT CONSULTING MANAGER [facility] Comment:DESIRABLE: <200 TRIGLYCERIDES 243 MG/DL 08/02/2020 12:22 PM IT CONSULTING MANAGER [facility] Comment:200-499 HIGH HDL 41 >39 MG/DL 08/02/2020 12:22 PM IT CONSULTING MANAGER [facility] LDL (CALCULATED) 41 MG/DL 08/02/20 12:22 PM IT CONSULTING MANAGER [facility] Comment:<100 OPTIMAL VLDL CALCULATION 49 MG/DL 08/02/20 12:22 PM IT CONSULTING MANAGER [facility] Comment:REFERENCE RANGE NOT ESTABLISHED CHOL/HDL RATIO 3.2 08/02/2020 12:22 PM IT CONSULTING MANAGER [facility] Comment:REFERENCE RANGE NOT ESTABLISHED LDL/HDL 1.0 08/02/2020 12:22 PM IT CONSULTING MANAGER [facility] Comment:REFERENCE RANGE NOT ESTABLISHED NON HDL CHOLESTEROL 90 MG/DL 08/02/2020 12:22 PM [facility] Comment:REFERENCE RANGE NOT ESTABLISHED 08/02/2020 3:30 AM IT CONSULTING MANAGER Jojo Dorantes NP LABORATORY Final Result [facility] [address] [place] [address], [id number] from Last 3 Months or Most Recently Relevant to Health Maintenance Insurance [facility] Advance Directives * Full Code (Latest Code Status on File) Date Activated Date Inactivated Comments 08/02/2020 2:41 AM 08/03/2020 11:23 AM
--- OUTSIDE RECORDS SUMMARY | 2024-10-07 09:20 | XMS_ITS | Clinical Summary ---
Author Organization [facility] [place] [address] Address [address] [place] [address] Care Team Providers Care Geological Sample Tester Name Role Phone Fransisco Holt Primary Care Provider Allergies No known active allergies Medications SYMBICORT 160-4.5 mcg/actuation inhaler 04/19/20 18 Active cyanocobalamin (Vitamin B-12) 1,000 mcg tabletIndications: Prevention of Vitamin B12 Deficiency Take 1 tablet (1,000 mcg total) by mouth daily Active atorvastatin (LIPITOR) 10 mg tabletIndications: Essential hypertension,Tobac co abuse counseling,Other hyperlipidemia TAKE 1 TABLET BY MOUTH EVERY DAY 90 tablet 2 06/13/20 23 Active budesonide/glycopy r/formoterol (BREZTRI AEROSPHERE INHAL) Inhale 10.7 g Active lisinopriL (PRINIVIL,ZESTRIL) 10 mg tabletIndications: Essential hypertension Take 1.5 tablets (15 mg total) by mouth daily 135 tablet 3 07/14/20 24 Active nicotine (NICODERM CQ) 21 mg APPLY 1 PATCH EVERY DAY 28 patch 10/02/19 25 Active nicotine (NICODERM CQ) [address] 1 patch on the skin daily 30 patch 2 07/14/20 24 025 Discontinued Active Problems Problem Noted Date Diagnosed Date Family history of premature CAD 08/09/2020 Other hyperlipidemia 01/16/2019 Essential hypertension 01/16/2019 Other chest pain 05/06/2018 Assessment & Plan (05/06/2018 7:26 AM CDT): At this time patient has no recurrence of chest pain and chest pain has completely resolved. Stress test suggestive of fixed defect in the anteroapical and anterior septal segments with small mild area. Discussed with the patient options for continuing medical therapy and observation including aspirin, lisinopril. Also discussed with patient option for proceeding for heart catheterization to define coronary anatomy. Explained benefits and risks. At this time we agree to continue medical therapy and observation. Reassess symptoms in 3 months. Tobacco abuse counseling 05/06/2018 Assessment & Plan (05/06/2018 7:34 AM CDT): Counseled patient regarding the importance of quitting smoking. Will emphasize this discussion next visit. Lipid screening 05/06/2018 Assessment & Plan (05/06/2018 7:34 AM CDT): Will discussed with the patient next visit adding low-dose statin because his LDL is mildly elevated and he is smoker with positive family history for CAD. Encounters Date Type Department Care Team Description 07/14/2024 8:15 AM COMMUNITY ORGANIZATION AIDE Office Visit [facility] Cardiology [address] [place] [phone] Heaven Rendon MD Family history of premature CAD (Primary Dx); Essential hypertension; Other hyperlipidemia; Other chest pain; Tobacco abuse counseling from Last 3 Months Surgical History Surgery Date Site/Laterality Comments CARDIAC CATHETERIZATION Medical History Medical History Date Comments Hypertension COPD (chronic obstructive pulmonary disease) (HC C) Family History Medical History Relation Name Comments Early Brother Jj Briceno Heart attack Brother Jj Briceno COPD Father Hugh Briceno Early Father Hugh Briceno Heart attack Father Hugh Briceno Hypertension Father Hugh Briceno Relation Name Status Comments Brother Jj Briceno Father Hugh Briceno Social History Tobacco Use Types Packs/Day Years Used Date Smoking Tobacco: Every Day Cigarettes Smokeless Tobacco: Never Tobacco Cessation:Ready to Q uit: Not Asked; Counseling Given: Not Answered Alcohol Use Standard Drinks/Week Comments Yes 12 (1 standard drink = 0.6 oz pu re alcohol) Sex and Gender Information Value Date Recorded Sex Assigned at Not on file Legal Sex Male 3:09 PM COMMUNITY ORGANIZATION AIDE Gender Identity Not on file Sexual Orientation Not on file Obstetrics History Last Filed Vital Signs Vital Sign Reading Time Taken Comments Blood Pressure 139/64 07/14/2024 8:25 AM COMMUNITY ORGANIZATION AIDE Pulse 68 07/14/2024 8:25 AM COMMUNITY ORGANIZATION AIDE Temperature - - Respiratory Rate 14 07/14/2024 8:25 AM COMMUNITY ORGANIZATION AIDE Oxygen Saturation 95% 07/14/2024 8:25 AM COMMUNITY ORGANIZATION AIDE Inhaled Oxygen Concentration - - Weight 104.8 kg (231 lb) 07/14/2024 8:25 AM COMMUNITY ORGANIZATION AIDE Height 185.4 cm (6' 1 ) 07/14/2024 8:25 AM COMMUNITY ORGANIZATION AIDE Body Mass Index 30.48 07/14/2024 8:25 AM COMMUNITY ORGANIZATION AIDE Plan of Treatment Health Maintenance Due Date Last Done Comments Colon Cancer Screening-Colonoscopy 1970 Depression Screening 1970 Hepatitis C Screening 1970 Prostate Cancer Screening-PSA 1970 Pneumococcal vaccine <65 (1 of 2 - PCV) 1976 DTaP/Tdap/Td Vaccine (1 - Tdap) 1981 Hepatitis B Screening 1988 Regular Well Visit/Exam 18-64 1988 Zoster Vaccine (1 of 2) 2020 Influenza Vaccine (#1) 2024 Procedures Procedure Name Priority Date/Time Associated Diagnosis Comments POCT LIPID PANEL Routine 07/14/2024 8:26 AM COMMUNITY ORGANIZATION AIDE Other hyperlipidemia from Last 3 Months Results * POCT lipid panel (07/14/2024 8:26 AM COMMUNITY ORGANIZATION AIDE) Cholesterol, POC 170 mg/dL HDL, POC 43 mg/dL Triglycerides, POC 133 mg/dL LDL Cholesterol POC 100 mg/dL Chol/HDL Ratio, POC 3.9 Non-HDL Cholesterol, POC 127 mg/dL Cholesterol Total, POC 170 mg/dL Capillary blood 07/14/2024 8 :26 AM COMMUNITY ORGANIZATION AIDE us Heaven Rendon MD POINT OF CARE TEST O RDERABLES Final Result from Last 3 Months Insurance [facility] Care Teams Geological Sample Tester Relationship Specialty Start Date End Date Fransisco Holt PA [address] [facility] [address] [place] [address] PCP - General Physician Prepress Stripper 03/19/23
--- OUTSIDE RECORDS SUMMARY | 2024-10-07 09:20 | XMS_ITS | Referral Summary ---
Author Organization [facility] [address] Address [address] [place] [address] Care Team Providers Care Community Relations Advisor Name Role Phone Fransisco Holt Primary Care Provider Encounters Date Type Department Care Team Description 07/14/2024 8:15 AM AGRICULTURAL PRODUCE WASHER Office Visit [facility] Cardiology [address] [place] [address] [place] [phone] Heaven Rendon MD Family history of premature CAD (Primary Dx); Essential hypertension; Other hyperlipidemia; Other chest pain; Tobacco abuse counseling from Last 3 Months Allergies No known active allergies Medications SYMBICORT [...] smoker with positive family history for CAD. Social History Tobacco Use Types Packs/Day Years Used Date Smoking Tobacco: Every Day Cigarettes Smokeless Tobacco: Never Tobacco Cessation:Ready to Q uit: Not Asked; Counseling Given: Not Answered Alcohol Use Standard Drinks/Week Comments Yes 12 (1 standard drink = 0.6 oz pu re alcohol) Sex and Gender Information Value Date Recorded Sex Assigned at Not on file Legal Sex Male 3:09 PM AGRICULTURAL PRODUCE WASHER Gender Identity Not on file Sexual Orientation Not on file Last Filed Vital Signs Vital Sign Reading Time Taken Comments Blood Pressure 139/64 07/14/2024 8:25 AM AGRICULTURAL PRODUCE WASHER Pulse 68 07/14/2024 8:25 AM AGRICULTURAL PRODUCE WASHER Temperature - - Respiratory Rate 14 07/14/2024 8:25 AM AGRICULTURAL PRODUCE WASHER Oxygen Saturation 95% 07/14/2024 8:25 AM AGRICULTURAL PRODUCE WASHER Inhaled Oxygen Concentration - - Weight 104.8 kg (231 lb) 07/14/2024 8:25 AM AGRICULTURAL PRODUCE WASHER Height 185.4 cm (6' 1 ) 07/14/2024 8:25 AM AGRICULTURAL PRODUCE WASHER Body Mass Index 30.48 07/14/2024 8:25 AM AGRICULTURAL PRODUCE WASHER Plan of Treatment Not on file Procedures Procedure Name Priority Date/Time Associated Diagnosis Comments POCT LIPID PANEL Routine 07/14/2024 8:26 AM AGRICULTURAL PRODUCE WASHER Other hyperlipidemia from Last 3 Months Results * POCT lipid panel (07/14/2024 8:26 AM AGRICULTURAL PRODUCE WASHER) Cholesterol, POC 170 mg/dL HDL, POC 43 mg/dL Triglycerides, POC 133 mg/dL LDL Cholesterol POC 100 mg/dL Chol/HDL Ratio, POC 3.9 Non-HDL Cholesterol, POC 127 mg/dL Cholesterol Total, POC 170 mg/dL Capillary blood 07/14/2024 8 :26 AM AGRICULTURAL PRODUCE WASHER Heaven Rendon MD POINT OF CARE TEST O RDERABLES Final Result from Last 3 Months Insurance [facility] Care Teams Community Relations Advisor Relationship Specialty Start Date End Date Fransisco Holt PA [address] [facility] [address] [place] [address] PCP - General Physician Substance Abuse Prevention Coordinator 03/19/23
[2024-10-07 09:32] VITALS: BP 161/65; PULSE 91; RESP 16; TEMP 36.4; O2SAT 97
[2024-10-07 09:44] LABS: EDUAAPPEAR Clear; EDUABILI 1+ (Negative); EDUABLOOD Negative (Negative); EDUACOLOR1 Yellow; EDUAGLUCOSE Trace (Negative); EDUAKETONE Trace (Negative); EDUALEUKO Negative (Negative); EDUANITRATE Positive (Negative); EDUAPROTEIN 2+ (Negative); EDUASPGRAVITY 1.025
--- NOTE | 2024-10-07 10:14 | ED.GENADULT ---
HPI - General Adult General Chief complaint: Urogenital-Male Stated complaint: personal problem Source: patient Mode of arrival: ambulatory Limitations: no limitations History of Present Illness HPI narrative: Patient presents for evaluation of dysuria for the last 2 days. He indicates he has had urinary tract infections in the past and this feels similar. He has a urologist. He was hospitalized several years ago for a UTI. Denies any urinary frequency, urgency, hesitancy, decreased force of urinary stream, urethral discharge, fever, chills, nausea, vomiting, abdominal pain, low back pain. It sounds like he had a cystoscopy in the past. He has been taking Azo for his symptoms. Related Data Allergies Allergy/AdvReac Type Severity Reaction Status Date / Time No Known Allergies Allergy Verified 05/05/24 07:24 Review of Systems Review of Systems: CONSTITUTIONAL: Denies fever, chills, or sweats. EYES: Denies visual changes, redness, or discharge. ENT: Denies rhinorrhea, congestion, sore throat, or otalgia. CARDIOVASCULAR: Denies chest pain, palpitations, or edema. RESPIRATORY: Denies cough or dyspnea. GASTROINTESTINAL: Denies abdominal pain, nausea, vomiting, or diarrhea. GENITOURINARY: Reports dysuria. Denies urinary frequency, urgency, hesitancy, hematuria, urethral discharge SKIN: Denies rash or itching. MUSCULOSKELETAL: Denies back pain, joint pain, or myalgia. NEUROLOGIC: Denies headache, numbness, dizziness, or weakness. PSYCHIATRIC: Denies anxiety or depression. [facility] Past Medical History Medical History Arthritis Tobacco abuse CAD (coronary artery disease) Bronchitis Asthma Urinary tract infection Closed left ankle fracture Hyperlipidemia COPD (chronic obstructive pulmonary disease) Hypertension Myocardial infarction 03/2018 Surgical History Surgical History Hx of tonsillectomy Family History Family History Father Hypertension Heart disease Sibling Hypertension Heart disease Social History Social History Smoking packs per day: 1 Smoking cigarettes per day: 20.0 Years smoked: 33 Smoking pack-years: 33.00 Smoking status: Current every day smoker Tobacco type: cigarettes Alcohol intake: current Drinks per week: 10 Alcohol use details: 2 -3 beers at night. Denies hx of negative consequences from etoh use, or wanting to cut down or feeling guilty about drinking. 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 HEAD: Normocephalic, atraumatic. EYES: PERRLA and EOMI. ENT: Nares clear, no rhinorrhea or epistaxis. Mucous membranes moist. Oropharynx without tonsillar hypertrophy exudate or other lesions. Bilateral TMs pearly sierra nonbulging NECK: Supple. No adenopathy or masses. No carotid bruits or JVD CHEST: Clear to auscultation. No respiratory distress. No wheezes rales or rhonchi HEART: Regular rate and rhythm. No murmur heard. Normal peripheral pulses. ABDOMEN: Soft, nontender, nondistended, normal active bowel sounds. EXTREMITIES: Normal range of motion. No edema. SKIN: Warm, dry, no rash. NEURO: No focal deficits. Alert and oriented x3. PSYCH: Normal mood and affect. Course Course Emergency Course: This is a 54-year-old male who presented for evaluation of dysuria. Urine today nitrite positive. Advised that he speak with his urologist about recurrent infections to determine if there is an underlying cause of this. Will send urine culture. Start Bactrim. Increase hydration. [id number] agents for symptom management. Follow up with primary provider. Go to the ER for worsening symptoms. Patient in agreement with plan of care. Level of Care: Express Care Visit Vital Signs Vital signs: Vital Signs Temperature 36.4 C L 10/07/24 09:32 Pulse Rate 91 10/07/24 09:32 Respiratory Rate 16 10/07/24 09:32 Blood Pressure 161/65 H 10/07/24 09:32 Pulse Oximetry 97 10/07/24 09:32 Oxygen Delivery Room Air 10/07/24 09:32 Temperature 36.4 C L 10/07/24 09:32 Pulse Rate 91 10/07/24 09:32 Respiratory Rate 16 10/07/24 09:32 Blood Pressure 161/65 H 10/07/24 09:32 Pulse Oximetry 97 10/07/24 09:32 Oxygen Delivery Room Air 10/07/24 09:32 Medical Decision Making Vital Signs Vital Signs: Vital Signs Temperature 36.4 C L 10/07/24 09:32 Pulse Rate 91 10/07/24 09:32 Respiratory Rate 16 10/07/24 09:32 Blood Pressure 161/65 H 10/07/24 09:32 Pulse Oximetry 97 10/07/24 09:32 Oxygen Delivery Room Air 10/07/24 09:32 Temperature 36.4 C L 10/07/24 09:32 Pulse Rate 91 10/07/24 09:32 Respiratory Rate 16 10/07/24 09:32 Blood Pressure 161/65 H 10/07/24 09:32 Pulse Oximetry 97 10/07/24 09:32 Oxygen Delivery Room Air 10/07/24 09:32 Lab Data Labs: Lab Results 10/07/24 Range/Units 09:41 POC Urine Color Yellow POC Urine Clarity Clear POC Urine pH 6.0 POC Ur Specif [place] 1.025 POC Urine Protein 2+ (Negative) POC Ur Glucose (UA) Trace (Negative) POC Urine Ketones Trace (Negative) POC Urine Blood Negative (Negative) POC Urine Nitrite Positive (Negative) POC Urine Bilirubin 1+ (Negative) POC Urine Urobilinogen 1.0 POC U Leukocyte Esteras Negative (Negative) Discharge Plan Discharge Clinical Impression: Acute UTI Patient Disposition: Home, Self-Care Condition: Stable Instructions: Antibiotic Form, Urinary Tract Infection in Men (ED) Additional Instructions: PLEASE SPEAK WITH YOUR UROLOGIST ABOUT YOUR RECURRENT UTI'S TO SEE IF YOU NEED MORE TESTING Patient Language: St Helen[place] Prescriptions: New sulfamethoxazole-trimethoprim [Bactrim DS] 800-160 mg tablet 1 tablet PO Q12H Qty: 14 0RF No Action atorvastatin 10 mg tablet 10 mg PO DAILY Qty: 90 1RF lisinopril 10 mg tablet 10 mg PO DAILY Qty: 90 1RF nicotine 21-14-7 mg/24 hr patch, TD daily, sequential See Rx Instructions .ROUTE .COMPLEX Qty: 56 0RF Dose Instruction: APPLY THE 21-MG PATCH ONCE DAILY FOR 6 WEEKS, THEN 14-MG PATCH ONCE DAILY FOR 2 WEEKS, THEN 7-MG PATCH ONCE DAILY FOR 2 WEEKS Rx Instructions: APPLY THE 21-MG PATCH ONCE DAILY FOR 6 WEEKS, THEN 14-MG PATCH ONCE DAILY FOR 2 WEEKS, THEN 7-MG PATCH ONCE DAILY FOR 2 WEEKS Follow-up/Referrals: Emeterio Nevarez APRN [Primary Care Provider] - Time of Disposition: 10:11
[2024-10-07 20:11] LABS: Chlamydia trachomatis NOT DETECTED (NOT DETECTE); Neisseria gonorrhoeae PCR NOT DETECTED (NOT DETECTE)
== END 2024-10-07 10:20 | disposition home or self-care (01) ==
PROVIDERS: Emergency Provider Nurse Practitioner; PCP Nurse Practitioner
DX: N39.0 Urinary tract infection, site not specified (principal); F17.210 Nicotine dependence, cigarettes, uncomplicated; I25.10 Atherosclerotic heart disease of native coronary artery without angina pectoris; I10 Essential (primary) hypertension; J44.9 Chronic obstructive pulmonary disease, unspecified; M19.90 Unspecified osteoarthritis, unspecified site; J45.909 Unspecified asthma, uncomplicated; I25.2 Old myocardial infarction
CPT/HCPCS: 81003; 87086; 87491; 87591; 99213; G0463